=== PATIENT | female | born 1970 | race Caucasian/White ===

== ENCOUNTER 2020-07-30 18:14 | Emergency (ER) | payer OTHER ==
[~2020-07-30] VITALS: Ht 170.2 cm; Wt 81.2 kg
[2020-07-30 18:18] VITALS: Ht 170.2 cm; Wt 81.2 kg
[2020-07-30 19:39] LABS: BASOPHIL % 0.3 % (0-2); PLATELET COUNT 200 x10^3mcL (130-400)
[2020-07-30 19:40] LABS: RED CELL DISTRIBUTION WIDTH 19.9 % (11.5-14.5)
[2020-07-30 20:04] LABS: CALCIUM 8.8 mg/dL (8.5-10.1); CARBON DIOXIDE 28.2 mmol/L (21-32); CHLORIDE SERUM 98 mmol/L (98-107); GFR1 > 60 mL/min; GLUCOSE SERUM 349 mg/dL (74-106); POTASSIUM SERUM 4.1 mmol/L (3.5-5.1); SODIUM SERUM 136 mmol/L (136-145)
[2020-07-30 20:11] LABS: ALBUMIN 3.5 g/dL (3.4-5.0); ALKALINE PHOSPHATASE 129 U/L (46-116); ALT/SGPT 112 U/L (14-59); AST/SGOT 59 U/L (15-37); BILIRUBIN TOTAL 0.5 mg/dL (0.20-1.00)
[2020-07-30 21:39] VITALS: BP 121/80
== END 2020-07-30 21:39 | disposition home or self-care (01) ==
LOC: ED 18:14
PROVIDERS: Specialist
DX: E11.65 Type 2 diabetes mellitus with hyperglycemia (principal); R07.89 Other chest pain
CPT/HCPCS: 82962; J1815; J1885; Q0092